=== PATIENT | female | born 1930 | race Caucasian/White ===

== ENCOUNTER → 2017-07-02 | Outpatient (CLI) | payer OTHER ==
--- NOTE | 2017-07-06 17:37 | MG ---
Examination: Bilateral screening mammogram. Clinical history: Routine screening. Technique: Digital CC and MLO views of both breasts were obtained. Computer aided detection analysis was performed and used during the interpretation. Comparison: None available. Findings: The breasts are composed predominantly of adipose tissue. Benign-appearing calcifications and vascul ar calcifications are noted in the breasts bilaterally. Skin moles are present overlying both breasts . No suspicious mass, area of architectural distortion or suspicious cluster of microcalcifications is noted. Impression: 1. No mammographic evidence of malignancy. BI-RADS category 2-benign findings. Recommend routine annual screening mammogram. Diagnostic CAD was utilized and reviewed. * 0 (ZERO) - ASSESSMENT INCOMPLETE; ADDITIONAL IMAGING IS NEEDED. * 0C - ASSESSMENT INCOMPLETE, NEEDS ADDITIONAL IMAGING EVALUATION AND/OR PRIOR MAMMOGRAMS FOR COMPARI SON. * 1/1 (ONE) - NEGATIVE. * 2/II (TWO) - BENIGN FINDINGS. * 3/III (THREE) - PROBABLY BENIGN FINDING; SHORT INTERVAL FOLLOW-UP SUGGESTED. * 4/IV (FOUR) - SUSPICIOUS ABNORMALITY; BIOPSY SHOULD BE CONSIDERED. * 5/V - HIGHLY SUSPICIOUS OF MALIGNANCY; BIOPSY SHOULD BE PERFORMED. * 6/IV - KNOWN BIOPSY PROVEN MALIGNANCY-APPROPRIATE ACTION SHOULD BE TAKEN. A NEGATIVE X-RAY REPORT SHOULD NOT DELAY BIOPSY IF A DOMINANT OR CLINICALLY SUSPICIOUS MASS IS PRESENT; 4 TO 8 PERCENT OF CANCERS ARE NOT IDENTIFIED BY X-RAY. A NEGATIVE REPORT MAY REINFORCE THE CLINICAL IMPRESSION. ADENOSIS AND DENSE BREASTS MAY OBSCURE AN UNDERLYING NEOPLASM. Reported By:
== END ==
LOC: RAD 09:08
PROVIDERS: ATTEND Internal Medicine Medical Oncology
DX: Z12.31 Encounter for screening mammogram for malignant neoplasm of breast (principal); C43.59 Malignant melanoma of other part of trunk
CPT/HCPCS: 77067

== ENCOUNTER → 2017-07-07 | Outpatient (CLI) | payer OTHER ==
[2017-07-07 09:11] LABS: BASOPHILS # (AUTO) 0.2 X10^3/uL (0.0-0.1); BASOPHILS % (AUTO) 1.9 % (0.2-1.0); EOSINOPHILS # (AUTO) 0.7 x10^3/uL (0.0-0.2); EOSINOPHILS % (AUTO) 8.5 % (0.9-2.9); HEMOGLOBIN 12.2 g/dL (12.0-16.0); LYMPHOCYTES # (AUTO) 2.5 X10^3/uL (1.3-2.9); LYMPHOCYTES % (AUTO) 30.7 % (21.0-51.0); MEAN CORPUSCULAR HEMOGLOBIN 27.3 pg (27.0-34.0); MEAN CORPUSCULAR VOLUME 80.3 fL (80.0-100.0); MEAN PLATELET VOLUME 7.5 fL (7.4-11.0); MONOCYTES # (AUTO) 0.8 x10^3/uL (0.3-0.8); MONOCYTES % (AUTO) 9.6 % (0.0-13.0); NEUTROPHILS # (AUTO) 3.9 x10^3/uL (2.2-4.8); NEUTROPHILS % (AUTO) 49.3 % (42.0-75.0); PLATELET COUNT 334 X10^3/uL (150.0-450.0); RED BLOOD COUNT 4.48 X10^6/uL (3.5-5.4); RED CELL DISTRIBUTION WIDTH 14.5 % (11.6-16.5)
[2017-07-07 09:22] LABS: ALANINE AMINOTRANSFERASE 18 Units/L (12-78); ALBUMIN 3.4 g/dL (3.4-5.0); ALKALINE PHOSPHATASE 67 Units/L (46-116); ASPARTATE AMINO TRANSFERASE 16 Units/L (15-37); BLOOD UREA NITROGEN 18 mg/dL (7-18); CALCIUM 9.2 mg/dL (8.5-10.1); CARBON DIOXIDE 27.8 mmol/L (21-32); CHLORIDE 107 mmol/L (98-107); COR NA(FOR HYPERGLY) 143 mmol/L (136-145); CREATININE 1.23 mg/dL (0.55-1.02); SODIUM 143 mmol/L (136-145); TOTAL PROTEIN 7.5 g/dL (6.4-8.2); eGFR BLACK RACES 53 (>60); eGFR NON BLACK RACES 44 (>60)
== END ==
LOC: LAB 08:34
PROVIDERS: ATTEND Internal Medicine Medical Oncology
DX: C43.59 Malignant melanoma of other part of trunk (principal)
CPT/HCPCS: 36415; 80053; 85025

== ENCOUNTER → 2017-10-12 | Outpatient (CLI) | payer OTHER ==
[2017-10-12 09:13] LABS: ALBUMIN 3.2 g/dL (3.4-5.0); CARBON DIOXIDE 26.4 mmol/L (21-32); COR CA(FOR HYPOALB) 9.6 mg/dL (8.5-10.1); CREATININE 1.27 mg/dL (0.55-1.02); TOTAL PROTEIN 7.6 g/dL (6.4-8.2)
[2017-10-12 09:14] LABS: BASOPHILS # (AUTO) 0.1 X10^3/uL (0.0-0.1); BASOPHILS % (AUTO) 2.1 % (0.2-1.0); EOSINOPHILS # (AUTO) 0.2 x10^3/uL (0.0-0.2); EOSINOPHILS % (AUTO) 3.5 % (0.9-2.9); HEMATOCRIT 34.9 % (36.0-47.0); HEMOGLOBIN 11.6 g/dL (12.0-16.0); LYMPHOCYTES # (AUTO) 2.5 X10^3/uL (1.3-2.9); LYMPHOCYTES % (AUTO) 37.2 % (21.0-51.0); MEAN CORPUSCULAR HGB CONC 33.2 g/dL (33.0-35.0); MEAN CORPUSCULAR VOLUME 81.4 fL (80.0-100.0); MEAN PLATELET VOLUME 7.3 fL (7.4-11.0); MONOCYTES # (AUTO) 0.6 x10^3/uL (0.3-0.8); MONOCYTES % (AUTO) 8.6 % (0.0-13.0); NEUTROPHILS # (AUTO) 3.3 x10^3/uL (2.2-4.8); NEUTROPHILS % (AUTO) 48.6 % (42.0-75.0); PLATELET COUNT 376 X10^3/uL (150.0-450.0); RED BLOOD COUNT 4.28 X10^6/uL (3.5-5.4); RED CELL DISTRIBUTION WIDTH 15.4 % (11.6-16.5); WHITE BLOOD COUNT 6.7 X10^3/uL (3.6-10.0)
== END ==
LOC: LAB 08:34
PROVIDERS: ATTEND Internal Medicine Medical Oncology
DX: C43.59 Malignant melanoma of other part of trunk (principal)
CPT/HCPCS: 36415; 80053; 83615; 85025

== ENCOUNTER 2017-11-08 13:57 | Inpatient (IN) | payer OTHER ==
--- NOTE | 2017-11-08 14:16 | DR.GENAD ---
HPI - PCP Primary Care Physician: Dr Tsai - Complaint/Symptoms Chief Complaint Doctors Comments: Patient was outside for family gathering and was noted to be unconscious. She was unresponsive for less than five minutes. She was diaphoretic w/o any abnormal movements. It is reported the CPR was iniated. Upon presentation to the ED she is alert in NAD; does not remeber event. Not sure if previous episode and no history of seizure. ROS - Review of Systems Constitutional: Weakness Eyes: No Symptoms Reported, See HPI ENTM: No Symptoms Reported Respiratoy: No Symptoms Reported Cardiovascular: No Symptoms Reported Gastrointestinal/Abdominal: No Symptoms Reported Genitourinary: No Symptoms Reported Neurological: No Symptoms Reported Musculoskeletal: No Symptoms Reported Integumentary: No Symptoms Reported Hematologic/Lymphatic: No Symptoms Reported Endocrine: No Symptoms Reported Psychiatric: No Symptoms Reported All Other Systems: Reviewed and Negative PE - Vital Signs Vitals: Temperature 97.8 F Pulse Rate 67 Respiratory Rate 20 Blood Pressure 173/76 O2 Sat by Pulse Oximetry 97 - General Limitations: No Limitations General Appearance: Alert, In No Apparent Distress - Head Head Exam: Normal Inspection, Atraumatic - Eyes Eye exam: Normal Appearance, PERRL, EOMI - ENT ENT Exam: Normal Exam External Ear Exam: Normal External Inspection TM/Canal Exam: Bilateral Normal Nose Exam: Normal Nose Exam, Sinus Tenderness Mouth Exam: Normal Inspection Throat Exam: Normal Inspection - Neck Neck Exam: Normal Inspection, Full ROM - Chest Chest Inspection: Normal Inspection - Respiratory Respiratory Exam: Normal Lung Sounds Bilat Respiratory Exam: Bilateral Clear to Auscultation - Cardiovascular Cardiovascular Exam: Regular Rate, Normal Rhythm - Abdominal Exam Abdominal Exam: Normal Inspection Abdominal Tenderness: negative: RUQ, RLQ, LUQ, LLQ, Epigastrium, Suprapubic, Diffuse, Mild, Moderate, Severe, Other - Extremities Extremities Exam: Normal Inspection, Full ROM - Back Back Exam: Normal Inspection, Full ROM - Neurologic Neurological Exam: Alert, Oriented X3, CN II-XII Intact - Psychiatric Psychiatric Exam: Normal Affect - Skin Skin Exam: Warm, Dry, Intact Course - Consultation Called: 15:15 (Dr Paredes agreed to admit for observation) ROR - Labs Reviewed Result Diagrams: 11/08/17 14:30 11/08/17 14:30 Laboratory: WBC 12.6 X10^3/uL (3.6-10.0) H 11/08/17 14:30 RBC 4.06 X10^6/uL (3.5-5.4) 11/08/17 14:30 Hgb 11.0 g/dL (12.0-16.0) L 11/08/17 14:30 Hct 33.0 % (36.0-47.0) L 11/08/17 14:30 MCV 81.1 fL (80.0-100.0) 11/08/17 14:30 MCH 27.0 pg (27.0-34.0) 11/08/17 14:30 MCHC 33.4 g/dL (33.0-35.0) 11/08/17 14:30 RDW 15.0 % (11.6-16.5) 11/08/17 14:30 Plt Count 333 X10^3/uL (150.0-450.0) 11/08/17 14:30 MPV 7.4 fL (7.4-11.0) 11/08/17 14:30 Neut % 70.9 % (42.0-75.0) 11/08/17 14:30 Lymph % 18.6 % (21.0-51.0) L 11/08/17 14:30 [place] % 8.8 % (0.0-13.0) 11/08/17 14:30 Eos % 0.9 % (0.9-2.9) 11/08/17 14:30 Baso % 0.8 % (0.2-1.0) 11/08/17 14:30 Neut # 8.9 x10^3/uL (2.2-4.8) H 11/08/17 14:30 Lymph # 2.3 X10^3/uL (1.3-2.9) 11/08/17 14:30 [place] # 1.1 x10^3/uL (0.3-0.8) H 11/08/17 14:30 Eos # 0.1 x10^3/uL (0.0-0.2) 11/08/17 14:30 Baso # 0.1 X10^3/uL (0.0-0.1) 11/08/17 14:30 Absolute Nucleated RBC 0.0 /100WBC 11/08/17 14:30 INR Target Range - 11/08/17 14:30 INR 1.07 (0.8-1.3) 11/08/17 14:30 PTT 30.6 SECONDS (22.9-36.5) 11/08/17 14:30 PTT Comment - 11/08/17 14:30 Sodium 140 mmol/L (136-145) 11/08/17 14:30 Corrected Sodium 141 mmol/L (136-145) 11/08/17 14:30 Potassium 4.1 mmol/L (3.5-5.1) 11/08/17 14:30 Chloride 103 mmol/L (98-107) 11/08/17 14:30 Carbon Dioxide 24.7 mmol/L (21-32) 11/08/17 14:30 BUN 20 mg/dL (7-18) H 11/08/17 14:30 Creatinine 1.34 mg/dL (0.55-1.02) H 11/08/17 14:30 Est GFR (MDRD) Af Amer 48 (>60) L 11/08/17 14:30 Est GFR (MDRD) Non-Af 40 (>60) L 11/08/17 14:30 Glucose 146 mg/dL (65-99) H 11/08/17 14:30 Calcium 9.3 mg/dL (8.5-10.1) 11/08/17 14:30 Corrected Calcium 9.9 mg/dL (8.5-10.1) 11/08/17 14:30 Magnesium 2.0 mg/dL (1.7-2.9) 11/08/17 14:30 Total Bilirubin 0.50 mg/dL (0.2-1.0) 11/08/17 14:30 AST 20 Units/L (15-37) 11/08/17 14:30 ALT 20 Units/L (12-78) 11/08/17 14:30 Alkaline Phosphatase 70 Units/L (46-116) 11/08/17 14:30 Creatine Kinase 95 Units/L (26-192) 11/08/17 14:30 CK-MB (CK-2) < 1.0 ng/mL (0-4.0) 11/08/17 14:30 CK/CKMB % Calc 1.1 % (<4) 11/08/17 14:30 Troponin I < 0.02 ng/mL (0-1.5) 11/08/17 14:30 Total Protein 7.9 g/dL (6.4-8.2) 11/08/17 14:30 Albumin 3.2 g/dL (3.4-5.0) L 11/08/17 14:30 Globulin 4.7 g/dL (2.5-4.5) H 11/08/17 14:30 Albumin/Globulin Ratio 0.7 Ratio (1.1-2.1) L 11/08/17 14:30 - XRAY XRAY Interpreted by: Radiologist (Chest: Normal transverse heart diameter with essentially clear lungs. There is no evidence for pneumothorax,pneumonia or large pleural effusion. Impression: No acute chest findings. CT Brain w/o Contrast: Extensive encephalomalacia changes bilaterally both supra and infraterntorially. No evidence of acute intracranial hemorrhage,mass,mass effect , midline shift or abnormal ventricular dilatation. Visualized paranasal sinuses and mastoid air cellls are unremarkable. Impression: No acute intracranial process.) - Diagnosis Discharge Problem: Syncope and collapse - Discharge Plan Condition: Stable - Follow ups/Referrals Follow ups/Referrals: Deng Tsai [Primary Care Provider] - 3 days - Instructions
[2017-11-08 14:20] VITALS: BMI 32.5
[2017-11-08 14:39] LABS: BASOPHILS # (AUTO) 0.1 X10^3/uL (0.0-0.1); BASOPHILS % (AUTO) 0.8 % (0.2-1.0); EOSINOPHILS # (AUTO) 0.1 x10^3/uL (0.0-0.2); EOSINOPHILS % (AUTO) 0.9 % (0.9-2.9); LYMPHOCYTES # (AUTO) 2.3 X10^3/uL (1.3-2.9); LYMPHOCYTES % (AUTO) 18.6 % (21.0-51.0); MEAN CORPUSCULAR HGB CONC 33.4 g/dL (33.0-35.0); MEAN CORPUSCULAR VOLUME 81.1 fL (80.0-100.0); MEAN PLATELET VOLUME 7.4 fL (7.4-11.0); MONOCYTES # (AUTO) 1.1 x10^3/uL (0.3-0.8); MONOCYTES % (AUTO) 8.8 % (0.0-13.0); NEUTROPHILS # (AUTO) 8.9 x10^3/uL (2.2-4.8); NEUTROPHILS % (AUTO) 70.9 % (42.0-75.0); PLATELET COUNT 333 X10^3/uL (150.0-450.0); RED BLOOD COUNT 4.06 X10^6/uL (3.5-5.4); WHITE BLOOD COUNT 12.6 X10^3/uL (3.6-10.0)
[2017-11-08] MEDS ORDERED: ZOFRAN INJ 4 MG VIAL IVP ONE (14:43)
[2017-11-08] MEDS ORDERED: NS 1000 ML 1,000 ML IV ONE (14:45)
[2017-11-08 14:56] LABS: BLOOD UREA NITROGEN 20 mg/dL (7-18); CALCIUM 9.3 mg/dL (8.5-10.1); CARBON DIOXIDE 24.7 mmol/L (21-32); CHLORIDE 103 mmol/L (98-107); COR NA(FOR HYPERGLY) 141 mmol/L (136-145); CREATININE 1.34 mg/dL (0.55-1.02); SODIUM 140 mmol/L (136-145); TROPONIN I < 0.02 ng/mL (0-1.5); eGFR BLACK RACES 48 (>60); eGFR NON BLACK RACES 40 (>60)
--- NOTE | 2017-11-08 14:58 | RAD ---
Examination: AP chest History: Syncope Findings: Normal transverse heart diameter with essentially clear lungs. There is no evidence for pne umothorax, pneumonia or large pleural effusion. Impression: No acute chest findings. Reported By:
[2017-11-08 15:01] LABS: ALANINE AMINOTRANSFERASE 20 Units/L (12-78); ALBUMIN 3.2 g/dL (3.4-5.0); ALKALINE PHOSPHATASE 70 Units/L (46-116); ASPARTATE AMINO TRANSFERASE 20 Units/L (15-37); COR CA(FOR HYPOALB) 9.9 mg/dL (8.5-10.1); CREATINE KINASE 95 Units/L (26-192); CREATINE KINASE MB < 1.0 ng/mL (0-4.0); TOTAL PROTEIN 7.9 g/dL (6.4-8.2)
[2017-11-08 15:02] LABS: CKMB % 1.1 % (<4)
--- NOTE | 2017-11-08 15:03 | CT ---
CT HEAD WITHOUT CONTRAST CLINICAL HISTORY: syncope TECHNIQUE: Axial images from skull base to the vertex without administration of IV contrast material. COMPARISON: None FINDINGS: Extensive encephalomalacia changes bilaterally both supra and infratentorially No evidence of acute intracranial hemorrhage, mass, mass effect, midline shift or abnormal ventricula r dilatation. Visualized paranasal sinuses and mastoid air cells are unremarkable. IMPRESSION: No acute intracranial process. Reported By:
[2017-11-08] MEDS ORDERED: FLUVIRIN IM ONE (17:40)
[2017-11-08 21:08] LABS: CREATINE KINASE 83 Units/L (26-192); CREATINE KINASE MB < 1.0 ng/mL (0-4.0); TROPONIN I < 0.02 ng/mL (0-1.5)
[2017-11-08 21:10] LABS: CKMB % 1.2 % (<4)
[2017-11-08] MEDS: NS 1000 ML 1,000 ML IV SCH (23:35)
[2017-11-09] MEDS: NS 1000 ML 1,000 ML IV SCH ×2 (05:21→15:58)
[2017-11-09 05:32] LABS: BASOPHILS # (AUTO) 0.1 X10^3/uL (0.0-0.1); BASOPHILS % (AUTO) 0.7 % (0.2-1.0); EOSINOPHILS # (AUTO) 0.1 x10^3/uL (0.0-0.2); EOSINOPHILS % (AUTO) 0.4 % (0.9-2.9); HEMOGLOBIN 9.8 g/dL (12.0-16.0); LYMPHOCYTES # (AUTO) 1.9 X10^3/uL (1.3-2.9); LYMPHOCYTES % (AUTO) 15.2 % (21.0-51.0); MEAN CORPUSCULAR HEMOGLOBIN 27.4 pg (27.0-34.0); MEAN CORPUSCULAR HGB CONC 33.8 g/dL (33.0-35.0); MEAN CORPUSCULAR VOLUME 81.2 fL (80.0-100.0); MEAN PLATELET VOLUME 7.6 fL (7.4-11.0); MONOCYTES # (AUTO) 1.2 x10^3/uL (0.3-0.8); NEUTROPHILS # (AUTO) 9.1 x10^3/uL (2.2-4.8); NEUTROPHILS % (AUTO) 73.7 % (42.0-75.0); PLATELET COUNT 299 X10^3/uL (150.0-450.0); RED BLOOD COUNT 3.57 X10^6/uL (3.5-5.4); WHITE BLOOD COUNT 12.4 X10^3/uL (3.6-10.0)
[2017-11-09 05:46] LABS: ALANINE AMINOTRANSFERASE 16 Units/L (12-78); ALBUMIN 2.7 g/dL (3.4-5.0); ALKALINE PHOSPHATASE 61 Units/L (46-116); ASPARTATE AMINO TRANSFERASE 13 Units/L (15-37); BLOOD UREA NITROGEN 12 mg/dL (7-18); CALCIUM 8.6 mg/dL (8.5-10.1); CARBON DIOXIDE 25.7 mmol/L (21-32); CHLORIDE 107 mmol/L (98-107); COR CA(FOR HYPOALB) 9.6 mg/dL (8.5-10.1); COR NA(FOR HYPERGLY) 141 mmol/L (136-145); CREATININE 0.92 mg/dL (0.55-1.02); SODIUM 141 mmol/L (136-145); TOTAL PROTEIN 6.8 g/dL (6.4-8.2); eGFR BLACK RACES > 60 (>60); eGFR NON BLACK RACES > 60 (>60)
[2017-11-09] MEDS: SYNTHROID 100 mcg TAB PO SCH (08:30)
[2017-11-09] MEDS: PROTONIX TAB 40 MG PO SCH (08:31)
[2017-11-09] MEDS: PLAVIX PO SCH (08:32)
[2017-11-09] MEDS ORDERED: DIOVAN TAB 160 MG PO SCH (09:00)
[2017-11-09] MEDS ORDERED: CRESTOR TAB 10 MG PO SCH (09:00)
[2017-11-09] MEDS ORDERED: COREG TAB 12.5 MG PO SCH (09:00)
[2017-11-09] MEDS ORDERED: VALSARTAN 320 MG PO SCH (09:00)
[2017-11-09] MEDS ORDERED: NORVASC TAB 10 MG PO SCH (09:00)
--- NOTE | 2017-11-09 09:48 | DR.H&P ---
H&P - History & Physical for Day of: H&P Date: 11/08/17 - Chief Complaint Chief Complaint: weakness, nausea, headache, syncopal episode at home - Allergies Allergies/Adverse Reactions: Allergies Allergy/AdvReac Type Severity Reaction Status Date / Time iodine Allergy Verified 11/08/17 14:07 - History of Present Illness History of Present Illness: is a 87 year old patient of ours who presented to the ER via EMS. EMS reports that they were called out to a patient who was unresponsive, but breathing. Patients family reports that she was unresponsive for no longer than five minutes. They report that patient was diaphoretic without any abnormal movements. Family reports that they initiated CPR prior to EMS arrival. Upon arrival patient was alert and oriented with no acute distress noted. Patient reports weakness, nausea, and headache. Patient has no recollection of event. Medical Hx includes: Cataracts, Vertigo, CVA, HTN , Fibroids, Arthritis, Osteoarthritis, Osteoporosis, Skin cancer, Cholecystectomy, Hysterectomy, and Hernia Surgery. On arrival, vitals were 98.4 , 87, 26, 99%2LP NC, 153/67. Labs were obtained. Abnormal lab values include the following: WBC 12.6, Hgb, 11.0, Hct 33.0, BUN 20, Creatinine 1.34, GFR(AA) 48, GFR(NON) 40, Glucose 146, Albumin 3.2, Globulin 4.7, A/G ratio 0.7. EKG reported: Normal sinus rhythm with HR of 76. Chest Xray reported: No acute chest findings. Brain CT reported: No acute intracranial process. She was started on Normal saline at 150ml/hr and given Zofran 4mg iv x 1 for nausea. Patient was admitted to the intensive care unit for further evaluation and treatment for syncope. We plan to obtain a Brain MRI/MRA in the morning. Otherwise, we will follow up with AM labs and continue to monitor patient. - Past Medical History Past Medical History: Arthritis, Coronary Artery Disease, Dyslipidemia, GERD, Hypertension, Hypothyroidism - Past Surgical History Surgical History: Cholecystectomy, Hysterectomy Additional Surgical History: skin cancer removed, hernia repair - Family History Family Medical History: Diabetes Mellitus, Cancer, Hypertension - Social History Does patient currently use any type of tobacco product: No Have you used tobacco products in the last 12 months: No Type of Tobacco Use: None Does any household member use tobacco: No Alcohol Use: None Drug Use: None - Medications Home Medications: Amlodipine Besylate [NORVASC 10 MG *] 10 mg PO DAILY 11/08/17 [History Confirmed 11/08/17] Carvedilol [COREG TAB 12.5 MG *] 12.5 mg PO DAILY 11/08/17 [History Confirmed ] Clopidogrel Bisulfate [PLAVIX TAB 75 MG *] 75 mg PO DAILY 11/08/17 [History Confirmed 11/08/17] Levothyroxine Sodium [Levoxyl] 100 mg PO DAILY 11/08/17 [History Confirmed 11/08] Pantoprazole Sodium 40 mg [PROTONIX 40 MG *] 40 mg PO DAILY 11/08/17 [History Confirmed 11/08/17] Rosuvastatin Calcium [CRESTOR 10 MG *] 10 mg PO DAILY 11/08/17 [History Confirmed 11/08/17] Valsartan [Diovan 320 mg] 320 mg PO DAILY 11/08/17 [History Confirmed 11/08/17] - Review of Systems Constitutional: Weakness. denies: Fever, Chills, Sweats Eyes: No Symptoms Reported. denies: See HPI, Pain, Vision Change, Conjunctivae Inflammation, Eyelid Inflammation, Redness, Other ENT: No Symptoms Reported. denies: See HPI, Ear Pain, Ear Discharge, Nose Pain , Nose Discharge, Nose Congestion, Mouth Pain, Mouth Swelling, Throat Pain, Throat Swelling, Other Respiratory: No Symptoms Reported. denies: See HPI, Cough, Dry, Shortness of Breath, Hemoptysis, SOB with Excertion, Pleuritic Pain, Sputum, Wheezing, Other Cardiovascular: No Symptoms Reported. denies: Chest Pain, See HPI, Palpitations , Orthopnea, Paroxysmal Noc. Dyspnea, Edema, Light Headedness, Other Gastrointestinal: Nausea. denies: Vomiting, Abdominal Pain, Diarrhea, Constipation, Melena, Hematochezia Genitourinary: No Symptoms Reported. denies: See HPI, Dysuria, Frequency, Incontinence, Hematuria, Retention, Other Musculoskeletal: No Symptoms Reported. denies: See HPI, Shoulder Pain, Arm Pain , Back Pain, Hand Pain, Leg Pain, Foot Pain, Neck Pain, Other Skin: No Symptoms Reported. denies: See HPI, Rash, Lesions, Jaundice, Bruising , Wound, Ecchymosis, Other Neurological: Weakness, Other (headache ) - Physical Exam Vital Signs: Temperature 98.9 F Pulse Rate [Left Brachial] 92 Pulse Rate 67 Respiratory Rate 22 Blood Pressure [Left Arm] 130/62 Blood Pressure 173/76 O2 Sat by Pulse Oximetry 96 Oriented: Normal Eyes: Normal Ear: Normal Nose: Normal Throat: Normal Respiratory: Clear Throughout Cardiovascular: Normal. negative: S3, S4, Murmur : Normal. negative: Dysuria, Hematuria, Frequency, Discharge, Testicular Pain , Bleeding, , Other Auscultation: Bowel Sounds: Normal. negative: Bruit, Absent, Increased, Decreased, High Pitched, Other Palpation: Normal Tenderness: Normal. negative: Rebound, Guarding, Rigidity Skin: Normal Musculoskeletal: Normal Psychiatric: Normal. negative: Anxiety, Depression, Agitation, Other Mood Description: Calm. negative: Angry, Apathetic, Depressed, Fearful, Flat, Happy, Hostile, Sad, Suspicious, Withdrawn, Anxious, Appropriate, Labile Affect: Normal. negative: Angry, Anxious, Depressed, Flat, Hysterical, Quiet, Violent Speech Pattern: Clear. negative: Appropriate, Unclear, Inappropriate, Delayed, Slurred, Excessive, Aphasic, Artificially Ventilated - Assessment/Plan (1) Syncope and collapse Status: Acute Plan: admit to intensive care unit, lunchroom monitor, normal saline at 80ml/hr, brain CT in the morning, continue to monitor
--- NOTE | 2017-11-09 10:34 | PCM.PROG ---
Progress Note - Progress Note for Day of Date: 11/09/17 - Subjective Subjective: WAS ADMITTED FOLLOWING A SYNCOPAL EPISODE. TODAY, SHE IS ALERT AND ORIENTED, LYING IN BED ON MORNING ROUNDS. SHE CONTINUES WITH COMPLAINTS OF GENERALIZED WEAKNESS, BUT DENIES HEADACHE OR NAUSEA THIS MORNING. ON EXAMINATION, PUPILS PERRLA. HEART IS REGULAR IN RATE AND RHYTHM. BIALTERAL LUNGS ARE CLEAR TO AUSCULTATION. ABDOMEN IS ROUND, SOFT, AND NON-TENDER WITH NORMAL BOWEL SOUNDS NOTED IN ALL QUADRANTS. THERE IS NORMAL RANGE OF MOTION NOTED TO ALL EXTREMITIES. HER VITALS THIS MORNING ARE 98.9-92-22-96%-130/62. LABS WERE OBTAINED THIS MORNING. ABNORMAL LAB VALUES INCLUDE THE FOLLOWING: WBC 12.4, HGB 9.8, HCT 29.0, GLUCOSE 113, AST 13, ALBUMIN 2.7. CARDIAC ENZYMES HAVE BEEN WITHIN NORMAL LIMITS. MOST RECENT EKG REPORTS NORMAL SINUS RHYTHM WITH HR 82. TODAY, WE WILL OBTAIN A BRAIN MRI/MRA WITH CONTRAST. WE WILL ALSO OBTAIN AN ECHO AND A CAROTID DOPPLER. WE WILL DISCONTINUE THE COREG, AMLODIPINE, AND DIOVAN THAT SHE CURRENTLY TAKES AND START METOPROLOL XL 12.5MG PO DAILY. OTHERWISE, WE WILL CONTINUE WITH CURRENT PLAN OF CARE. WE PLAN TO FOLLOW UP WITH AM LABS AND CONTINUE TO MONITOR PATIENT. - Past Medical Family Social History Past Med/Fam/Surg Hx: No changes since H&P Allergies: Allergies iodine Allergy (Verified 11/08/17 14:07) - Review of Systems ROS: No change since H&P - Vital Signs and I&O's Vital Signs: Temperature 98.6 F Pulse Rate [Left Brachial] 85 Pulse Rate 67 Respiratory Rate 19 Blood Pressure [Left Arm] 134/63 Blood Pressure 173/76 O2 Sat by Pulse Oximetry 96 Intake and Output: Intake & Output 11/06/17 11/07/17 11/08/17 11/09/17 11:59 11:59 11:59 11:59 Intake Total 1640 Balance 1640 - Physical Exam Oriented: Normal Eyes: Normal Ear: Normal Nose: Normal Throat: Normal Respiratory: Normal Cardiovascular: Normal. negative: S3, S4, Murmur : Normal. negative: Dysuria, Hematuria, Frequency, Discharge, Testicular Pain , Bleeding, , Other Auscultation: Bowel Sounds: Normal. negative: Bruit, Absent, Increased, Decreased, High Pitched, Other Palpation: Normal Tenderness: Normal. negative: Rebound, Guarding, Rigidity Skin: Normal Musculoskeletal: Normal Psychiatric: Normal. negative: Anxiety, Depression, Agitation, Other Mood Description: Calm. negative: Angry, Apathetic, Depressed, Fearful, Flat, Happy, Hostile, Sad, Suspicious, Withdrawn, Anxious, Appropriate, Labile Affect: Normal. negative: Angry, Anxious, Depressed, Flat, Hysterical, Quiet, Violent Speech Pattern: Clear. negative: Appropriate, Unclear, Inappropriate, Delayed, Slurred, Excessive, Aphasic, Artificially Ventilated - Laboratory and Diagnostics Result Diagrams: 11/09/17 04:40 11/09/17 04:40 Labs: Laboratory WBC 12.4 X10^3/uL (3.6-10.0) H 11/09/17 04:40 RBC 3.57 X10^6/uL (3.5-5.4) 11/09/17 04:40 Hgb 9.8 g/dL (12.0-16.0) L 11/09/17 04:40 Hct 29.0 % (36.0-47.0) L 11/09/17 04:40 MCV 81.2 fL (80.0-100.0) 11/09/17 04:40 MCH 27.4 pg (27.0-34.0) 11/09/17 04:40 MCHC 33.8 g/dL (33.0-35.0) 11/09/17 04:40 RDW 15.0 % (11.6-16.5) 11/09/17 04:40 Plt Count 299 X10^3/uL (150.0-450.0) 11/09/17 04:40 MPV 7.6 fL (7.4-11.0) 11/09/17 04:40 Neut % 73.7 % (42.0-75.0) 11/09/17 04:40 Lymph % 15.2 % (21.0-51.0) L 11/09/17 04:40 [place] % 10.0 % (0.0-13.0) 11/09/17 04:40 Eos % 0.4 % (0.9-2.9) L 11/09/17 04:40 Baso % 0.7 % (0.2-1.0) 11/09/17 04:40 Neut # 9.1 x10^3/uL (2.2-4.8) H 11/09/17 04:40 Lymph # 1.9 X10^3/uL (1.3-2.9) 11/09/17 04:40 [place] # 1.2 x10^3/uL (0.3-0.8) H 11/09/17 04:40 Eos # 0.1 x10^3/uL (0.0-0.2) 11/09/17 04:40 Baso # 0.1 X10^3/uL (0.0-0.1) 11/09/17 04:40 Absolute Nucleated RBC 0.0 /100WBC 11/09/17 04:40 INR Target Range - 11/08/17 14:30 INR 1.07 (0.8-1.3) 11/08/17 14:30 PTT 30.6 SECONDS (22.9-36.5) 11/08/17 14:30 PTT Comment - 11/08/17 14:30 Sodium 141 mmol/L (136-145) 11/09/17 04:40 Corrected Sodium 141 mmol/L (136-145) 11/09/17 04:40 Potassium 3.8 mmol/L (3.5-5.1) 11/09/17 04:40 Chloride 107 mmol/L (98-107) 11/09/17 04:40 Carbon Dioxide 25.7 mmol/L (21-32) 11/09/17 04:40 BUN 12 mg/dL (7-18) 11/09/17 04:40 Creatinine 0.92 mg/dL (0.55-1.02) 11/09/17 04:40 Est GFR (MDRD) Af Amer > 60 (>60) 11/09/17 04:40 Est GFR (MDRD) Non-Af > 60 (>60) 11/09/17 04:40 Glucose 113 mg/dL (65-99) H 11/09/17 04:40 Calcium 8.6 mg/dL (8.5-10.1) 11/09/17 04:40 Corrected Calcium 9.6 mg/dL (8.5-10.1) 11/09/17 04:40 Magnesium 2.0 mg/dL (1.7-2.9) 11/08/17 14:30 Total Bilirubin 0.40 mg/dL (0.2-1.0) 11/09/17 04:40 AST 13 Units/L (15-37) L 11/09/17 04:40 ALT 16 Units/L (12-78) 11/09/17 04:40 Alkaline Phosphatase 61 Units/L (46-116) 11/09/17 04:40 Creatine Kinase 83 Units/L (26-192) 11/08/17 20:40 CK-MB (CK-2) < 1.0 ng/mL (0-4.0) 11/08/17 20:40 CK/CKMB % Calc 1.2 % (<4) 11/08/17 20:40 Troponin I < 0.02 ng/mL (0-1.5) 11/08/17 20:40 Total Protein 6.8 g/dL (6.4-8.2) 11/09/17 04:40 Albumin 2.7 g/dL (3.4-5.0) L 11/09/17 04:40 Globulin 4.1 g/dL (2.5-4.5) 11/09/17 04:40 Albumin/Globulin Ratio 0.7 Ratio (1.1-2.1) L 11/09/17 04:40 - Plan (1) Syncope and collapse Status: Acute Plan: obtain echo and carotid doppler, ekg monitor tech, normal saline at 80ml/hr , brain CT in the morning, continue to monitor (2) Hypertension Status: Acute Qualifiers: Hypertension type: essential hypertension Qualified Code(s): I10 - Essential (primary) hypertension Plan: metoprolol xl 12.5mg po daily, continue to monitor (3) Hypothyroidism Status: Acute Qualifiers: Hypothyroidism type: acquired Qualified Code(s): E03.9 - Hypothyroidism, unspecified Plan: continue levothyroxine, continue to monitor (4) GERD (gastroesophageal reflux disease) Status: Acute Qualifiers: Esophagitis presence: esophagitis presence not specified Qualified Code(s) : K21.9 - Gastro-esophageal reflux disease without esophagitis Plan: continue protonix, continue to monitor (5) Hyperlipemia Status: Acute Qualifiers: Hyperlipidemia type: mixed hyperlipidemia Qualified Code(s): E78.2 - Mixed hyperlipidemia Plan: continue rosuvastatin, continue to monitor
--- NOTE | 2017-11-09 13:35 | MRI ---
HISTORY: Syncope, weakness, headache Study: MRI brain without contrast Comparison: CT performed on 11/08/2017 Technique: Multi sequence, multiplanar imaging of the brain was performed both before and after the administrati on of 17 cc Omniscan . Findings: Imaging of the brain demonstrates the midline structures to be intact. There is no intracranial hemor rhage, mass effect, or midline shift. Diffusion-weighted images demonstrate no restricted diffusion t o suggest acute or early subacute infarct. Global atrophy is noted. There is extensive encephalomalac ia and gliosis present within the bilateral cerebellar hemispheres, left greater than right. These fi ndings may reflect prior remote infarcts. There is also evidence of prior remote infarct involving th e left occipital lobe. No extra-axial fluid collection is identified. There are T2/FLAIR hyperintense foci throughout the periventricular, deep, and subcortical white matter, findings likely reflecting chronic small vessel disease. The basilar cisterns are patent. The bilateral cerebellopontine angles are unremarkable. Postcontrast images demonstrate no abnormal contrast enhancement within the brain. Incidental note is made of a 9 mm nodule within the left posterior scalp, likely representing a compl icated sebaceous cyst. IMPRESSION: 1. No acute or early subacute infarct. 2. Extensive encephalomalacia within the bilateral cerebellar hemispheres, likely reflecting prior re mote infarcts. Prior remote left occipital infarct noted as well. 3. Chronic small vessel disease in global atrophy. Reported By:
--- NOTE | 2017-11-09 14:39 | MRI ---
STUDY: MRA OF THE BRAIN HISTORY: Syncope. Weakness. Comparison: None. Technique: 3D [id number] imaging of the intracranial circulation was performed. Findings: 3D [id number] MRA examination shows mild focal stenosis in the cavernous left ICA. There is jerry lization of flow within the supraclinoid left ICA to the ICA terminus. There is normal flow related e nhancement in the remaining major intracranial arteries. There is no evidence of hemodynamically sign ificant stenosis or aneurysm. There is a normal anterior communicating artery. There are small bilate ralposterior communicating arteries. Vertebral arteries are codominant. IMPRESSION: 1. 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 No significant attenuation of flow is identified distal to the focal stenosis. Reported By:
--- NOTE | 2017-11-09 17:23 | VAS ---
History: Syncope and headache Study: Carotid duplex ultrasound Comparison: None Findings: The peak systolic velocity in the right common carotid artery is 76.8 centimeters/second an d in the internal carotid artery is 109.8 centimeters/second for ratio of 1.43. Peak systolic velocity in the left common carotid artery is 97.9 centimeters/second compared to 118.8 centimeters/second in the left internal carotid artery for a ratio of 1.21. There is antegrade flow in the left vertebral artery. The right vertebral is not visualized. No signi ficant plaque formation is demonstrated. Impression: Negative, no evidence for significant stenosis. Reported By:
[2017-11-10 05:28] LABS: BASOPHILS # (AUTO) 0.1 X10^3/uL (0.0-0.1); BASOPHILS % (AUTO) 0.9 % (0.2-1.0); EOSINOPHILS # (AUTO) 0.3 x10^3/uL (0.0-0.2); EOSINOPHILS % (AUTO) 3.1 % (0.9-2.9); HEMATOCRIT 28.1 % (36.0-47.0); HEMOGLOBIN 9.5 g/dL (12.0-16.0); LYMPHOCYTES # (AUTO) 2.7 X10^3/uL (1.3-2.9); LYMPHOCYTES % (AUTO) 25.1 % (21.0-51.0); MEAN CORPUSCULAR HEMOGLOBIN 27.9 pg (27.0-34.0); MEAN CORPUSCULAR HGB CONC 33.9 g/dL (33.0-35.0); MEAN CORPUSCULAR VOLUME 82.2 fL (80.0-100.0); MEAN PLATELET VOLUME 7.4 fL (7.4-11.0); MONOCYTES # (AUTO) 1.2 x10^3/uL (0.3-0.8); MONOCYTES % (AUTO) 11.5 % (0.0-13.0); NEUTROPHILS # (AUTO) 6.3 x10^3/uL (2.2-4.8); NEUTROPHILS % (AUTO) 59.4 % (42.0-75.0); PLATELET COUNT 293 X10^3/uL (150.0-450.0); RED BLOOD COUNT 3.42 X10^6/uL (3.5-5.4); RED CELL DISTRIBUTION WIDTH 14.9 % (11.6-16.5); WHITE BLOOD COUNT 10.6 X10^3/uL (3.6-10.0)
[2017-11-10 05:46] LABS: ALANINE AMINOTRANSFERASE 13 Units/L (12-78); ALBUMIN 2.4 g/dL (3.4-5.0); ALKALINE PHOSPHATASE 57 Units/L (46-116); ASPARTATE AMINO TRANSFERASE 16 Units/L (15-37); BLOOD UREA NITROGEN 8 mg/dL (7-18); CALCIUM 8.2 mg/dL (8.5-10.1); CARBON DIOXIDE 26.8 mmol/L (21-32); CHLORIDE 107 mmol/L (98-107); COR CA(FOR HYPOALB) 9.5 mg/dL (8.5-10.1); CREATININE 0.83 mg/dL (0.55-1.02); SODIUM 141 mmol/L (136-145); TOTAL PROTEIN 6.6 g/dL (6.4-8.2); eGFR BLACK RACES > 60 (>60); eGFR NON BLACK RACES > 60 (>60)
[2017-11-10] MEDS: NS 1000 ML 1,000 ML IV SCH ×2 (06:06→21:00)
[2017-11-10] MEDS ORDERED: POTASSIUM CHLORIDE LIQ 20 MEQ UDC PO PRN (06:19)
[2017-11-10] MEDS ORDERED: MAG-OX TAB PO PRN (06:19)
[2017-11-10] MEDS ORDERED: POTASSIUM CHL 40 MEQ/NS 0.45% 500 ML IV PRN (06:19)
[2017-11-10] MEDS ORDERED: POTASSIUM CHL 60 MEQ/NS 0.45% 500 ML IV PRN (06:19)
[2017-11-10] MEDS ORDERED: MAGNESIUM SULFATE 1 GM/100 mL PREMIX 1 GM/100 ML BAG IV PRN (06:19)
[2017-11-10] MEDS ORDERED: K-RIDER 10 MEQ/NS 100 ML 10 MEQ/100 ML BAG IV PRN (06:19)
[2017-11-10] MEDS: K-LYTE EFFERVESCENT PO PRN (06:48)
[2017-11-10] MEDS: PROTONIX TAB 40 MG PO SCH (09:59)
[2017-11-10] MEDS: SYNTHROID 100 mcg TAB PO SCH (09:59)
[2017-11-10] MEDS: TOPROL XL PO SCH (09:59)
[2017-11-10] MEDS: ECOTRIN TAB 325 MG PO SCH (09:59)
[2017-11-10] MEDS: PLAVIX PO SCH (10:11)
[2017-11-11 05:51] LABS: BASOPHILS # (AUTO) 0.1 X10^3/uL (0.0-0.1); BASOPHILS % (AUTO) 0.9 % (0.2-1.0); EOSINOPHILS # (AUTO) 0.3 x10^3/uL (0.0-0.2); EOSINOPHILS % (AUTO) 3.3 % (0.9-2.9); HEMATOCRIT 28.8 % (36.0-47.0); HEMOGLOBIN 9.8 g/dL (12.0-16.0); LYMPHOCYTES # (AUTO) 1.9 X10^3/uL (1.3-2.9); LYMPHOCYTES % (AUTO) 18.5 % (21.0-51.0); MEAN CORPUSCULAR HEMOGLOBIN 27.3 pg (27.0-34.0); MEAN CORPUSCULAR HGB CONC 34.1 g/dL (33.0-35.0); MEAN CORPUSCULAR VOLUME 80.1 fL (80.0-100.0); MEAN PLATELET VOLUME 7.2 fL (7.4-11.0); MONOCYTES # (AUTO) 1.2 x10^3/uL (0.3-0.8); MONOCYTES % (AUTO) 11.1 % (0.0-13.0); NEUTROPHILS # (AUTO) 6.9 x10^3/uL (2.2-4.8); NEUTROPHILS % (AUTO) 66.2 % (42.0-75.0); PLATELET COUNT 312 X10^3/uL (150.0-450.0); RED CELL DISTRIBUTION WIDTH 14.5 % (11.6-16.5); WHITE BLOOD COUNT 10.4 X10^3/uL (3.6-10.0)
[2017-11-11 06:13] LABS: ALANINE AMINOTRANSFERASE 14 Units/L (12-78); ALBUMIN 2.5 g/dL (3.4-5.0); ALKALINE PHOSPHATASE 56 Units/L (46-116); ASPARTATE AMINO TRANSFERASE 15 Units/L (15-37); BLOOD UREA NITROGEN 6 mg/dL (7-18); CALCIUM 8.7 mg/dL (8.5-10.1); CHLORIDE 106 mmol/L (98-107); COR CA(FOR HYPOALB) 9.9 mg/dL (8.5-10.1); CREATININE 0.76 mg/dL (0.55-1.02); SODIUM 141 mmol/L (136-145); TOTAL PROTEIN 6.9 g/dL (6.4-8.2); eGFR BLACK RACES > 60 (>60); eGFR NON BLACK RACES > 60 (>60)
[2017-11-11] MEDS: CRESTOR TAB 10 MG PO SCH (08:30)
[2017-11-11] MEDS: TOPROL XL PO SCH (08:30)
[2017-11-11] MEDS: PLAVIX PO SCH (08:31)
[2017-11-11] MEDS: SYNTHROID 100 mcg TAB PO SCH (08:31)
[2017-11-11] MEDS: PROTONIX TAB 40 MG PO SCH (08:31)
[2017-11-11] MEDS: ECOTRIN TAB 325 MG PO SCH (08:31)
[2017-11-11] MEDS: K-LYTE EFFERVESCENT PO PRN (08:39)
[2017-11-11] MEDS: NS 1000 ML 1,000 ML IV SCH ×2 (10:13→21:55)
[2017-11-11] MEDS: NORVASC TAB 5 MG PO SCH (10:17)
--- NOTE | 2017-11-11 12:49 | PCM.PROG ---
Progress Note - Progress Note for Day of Date: 11/10/17 - Subjective Subjective: WAS ADMITTED FOLLOWING A SYNCOPAL EPISODE. TODAY, SHE IS ALERT AND ORIENTED, LYING IN BED ON MORNING ROUNDS. SHE CONTINUES WITH COMPLAINTS OF GENERALIZED WEAKNESS, BUT DENIES HEADACHE OR NAUSEA THIS MORNING. ON EXAMINATION, PUPILS PERRLA. HEART IS REGULAR IN RATE AND RHYTHM. BIALTERAL LUNGS ARE CLEAR TO AUSCULTATION. ABDOMEN IS ROUND, SOFT, AND NON-TENDER WITH NORMAL BOWEL SOUNDS NOTED IN ALL QUADRANTS. THERE IS NORMAL RANGE OF MOTION NOTED TO ALL EXTREMITIES. HER VITALS THIS MORNING ARE 98.4-91-25-96%-149/67. LABS WERE OBTAINED THIS MORNING. ABNORMAL LAB VALUES INCLUDE THE FOLLOWING: WBC 10.6, RBC 3.42, HGB 9.5, HCT 28.1, BUN 6, GLUCOSE 110, ALBUMIN 2.5. A BRAIN MRI/ MRA WITH CONTRAST WAS OBTAINED YESTERDAY. MRI REPORTED NO ACUTE OR EARLY SUBACUTE INFARCT. 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 PRIOR REMOTE LEFT OCCIPITAL INFARCT NOTED S WELL. 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 NO SIGNIFICANT ATTENUTION OF FLOW IS IDENTIFEIED DISTAL TO THE FOCAL STENOSIS. ECHOCARDIOGRAM REPORTED AN EJECTION FRACTION OF 58%. CAROTID DOPPLER NEGATIVE. TODAY, WE WILL INCREASE ROSUVASTATIN TO 20MG PO DAILY AND START ECOTRIN 325MG PO DAILY. OTHERWISE, WE WILL CONTINUE WITH CURRENT PLAN OF CARE. WE PLAN TO FOLLOW UP WITH AM LABS AND CONTINUE TO MONITOR PATIENT. - Past Medical Family Social History Past Med/Fam/Surg Hx: No changes since H&P Allergies: Allergies iodine Allergy (Verified 11/08/17 14:07) - Review of Systems ROS: No change since H&P - Vital Signs and I&O's Vital Signs: Temperature 97.9 F Pulse Rate [Left Brachial] 76 Pulse Rate 67 Respiratory Rate 20 Blood Pressure [Left Arm] 150/69 Blood Pressure 173/76 O2 Sat by Pulse Oximetry 97 Intake and Output: Intake & Output 11/09/17 11/10/17 11/11/17 11/12/17 11:59 11:59 11:59 11:59 Intake Total 1640 2507 2872 Output Total 0 Balance 1640 2507 2872 - Physical Exam Oriented: Normal Eyes: Normal Ear: Normal Nose: Normal Throat: Normal Respiratory: Normal Cardiovascular: Normal. negative: S3, S4, Murmur : Normal. negative: Dysuria, Hematuria, Frequency, Discharge, Testicular Pain , Bleeding, , Other Auscultation: Bowel Sounds: Normal. negative: Bruit, Absent, Increased, Decreased, High Pitched, Other Palpation: Normal Tenderness: Normal. negative: Rebound, Guarding, Rigidity Skin: Normal Musculoskeletal: Normal Psychiatric: Normal. negative: Anxiety, Depression, Agitation, Other Mood Description: Calm. negative: Angry, Apathetic, Depressed, Fearful, Flat, Happy, Hostile, Sad, Suspicious, Withdrawn, Anxious, Appropriate, Labile Affect: Normal. negative: Angry, Anxious, Depressed, Flat, Hysterical, Quiet, Violent Speech Pattern: Clear, Appropriate - Laboratory and Diagnostics Result Diagrams: 11/11/17 05:10 11/11/17 05:10 Labs: Laboratory WBC 10.4 X10^3/uL (3.6-10.0) H 11/11/17 05:10 RBC 3.60 X10^6/uL (3.5-5.4) 11/11/17 05:10 Hgb 9.8 g/dL (12.0-16.0) L 11/11/17 05:10 Hct 28.8 % (36.0-47.0) L 11/11/17 05:10 MCV 80.1 fL (80.0-100.0) 11/11/17 05:10 MCH 27.3 pg (27.0-34.0) 11/11/17 05:10 MCHC 34.1 g/dL (33.0-35.0) 11/11/17 05:10 RDW 14.5 % (11.6-16.5) 11/11/17 05:10 Plt Count 312 X10^3/uL (150.0-450.0) 11/11/17 05:10 MPV 7.2 fL (7.4-11.0) L 11/11/17 05:10 Neut % 66.2 % (42.0-75.0) 11/11/17 05:10 Lymph % 18.5 % (21.0-51.0) L 11/11/17 05:10 [place] % 11.1 % (0.0-13.0) 11/11/17 05:10 Eos % 3.3 % (0.9-2.9) H 11/11/17 05:10 Baso % 0.9 % (0.2-1.0) 11/11/17 05:10 Neut # 6.9 x10^3/uL (2.2-4.8) H 11/11/17 05:10 Lymph # 1.9 X10^3/uL (1.3-2.9) 11/11/17 05:10 Swift # 1.2 x10^3/uL (0.3-0.8) H 11/11/17 05:10 Eos # 0.3 x10^3/uL (0.0-0.2) H 11/11/17 05:10 Baso # 0.1 X10^3/uL (0.0-0.1) 11/11/17 05:10 Absolute Nucleated RBC 0.0 /100WBC 11/11/17 05:10 INR Target Range - 11/08/17 14:30 INR 1.07 (0.8-1.3) 11/08/17 14:30 PTT 30.6 SECONDS (22.9-36.5) 11/08/17 14:30 PTT Comment - 11/08/17 14:30 Sodium 141 mmol/L (136-145) 11/11/17 05:10 Corrected Sodium TNP 11/11/17 05:10 Potassium 3.6 mmol/L (3.5-5.1) 11/11/17 05:10 Chloride 106 mmol/L (98-107) 11/11/17 05:10 Carbon Dioxide 28.0 mmol/L (21-32) 11/11/17 05:10 BUN 6 mg/dL (7-18) L 11/11/17 05:10 Creatinine 0.76 mg/dL (0.55-1.02) 11/11/17 05:10 Est GFR (MDRD) Af Amer > 60 (>60) 11/11/17 05:10 Est GFR (MDRD) Non-Af > 60 (>60) 11/11/17 05:10 Glucose 110 mg/dL (65-99) H 11/11/17 05:10 Calcium 8.7 mg/dL (8.5-10.1) 11/11/17 05:10 Corrected Calcium 9.9 mg/dL (8.5-10.1) 11/11/17 05:10 Magnesium 1.8 mg/dL (1.7-2.9) 11/11/17 05:10 Total Bilirubin 0.30 mg/dL (0.2-1.0) 11/11/17 05:10 AST 15 Units/L (15-37) 11/11/17 05:10 ALT 14 Units/L (12-78) 11/11/17 05:10 Alkaline Phosphatase 56 Units/L (46-116) 11/11/17 05:10 Creatine Kinase 83 Units/L (26-192) 11/08/17 20:40 CK-MB (CK-2) < 1.0 ng/mL (0-4.0) 11/08/17 20:40 CK/CKMB % Calc 1.2 % (<4) 11/08/17 20:40 Troponin I < 0.02 ng/mL (0-1.5) 11/08/17 20:40 Total Protein 6.9 g/dL (6.4-8.2) 11/11/17 05:10 Albumin 2.5 g/dL (3.4-5.0) L 11/11/17 05:10 Globulin 4.4 g/dL (2.5-4.5) 11/11/17 05:10 Albumin/Globulin Ratio 0.6 Ratio (1.1-2.1) L 11/11/17 05:10 - Plan (1) TIA (transient ischemic attack) Status: Acute Qualifiers: Transient cerebral ischemia type: unspecified Qualified Code(s): G45.9 - Transient cerebral ischemic attack, unspecified Plan: PLAVIX, ECOTRIN, CRESTOR, CONTINUE TO MONITOR. 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, normal saline at 80ml/hr , brain CT in the morning, continue to monitor (3) Hypertension Status: Acute Qualifiers: Hypertension type: essential hypertension Qualified Code(s): I10 - Essential (primary) hypertension Plan: metoprolol xl 12.5mg po daily, continue to monitor (4) Hypothyroidism Status: Acute Qualifiers: Hypothyroidism type: acquired Qualified Code(s): E03.9 - Hypothyroidism, unspecified Plan: continue levothyroxine, continue to monitor (5) GERD (gastroesophageal reflux disease) Status: Acute Qualifiers: Esophagitis presence: esophagitis presence not specified Qualified Code(s) : K21.9 - Gastro-esophageal reflux disease without esophagitis Plan: continue protonix, continue to monitor (6) Hyperlipemia Status: Acute Qualifiers: Hyperlipidemia type: mixed hyperlipidemia Qualified Code(s): E78.2 - Mixed hyperlipidemia Plan: continue rosuvastatin, continue to monitor
--- NOTE | 2017-11-11 21:40 | PCM.PROG ---
Progress Note - Progress Note for Day of Date: 11/11/17 - Subjective Subjective: WAS ADMITTED FOLLOWING A SYNCOPAL EPISODE. BRAIN CT REVEALED MULTIPLE TIAs. TODAY, SHE IS ALERT AND ORIENTED, LYING IN BED ON MORNING ROUNDS. SHE CONTINUES WITH COMPLAINTS OF GENERALIZED WEAKNESS, BUT DENIES HEADACHE OR NAUSEA THIS MORNING. ON EXAMINATION, PUPILS PERRLA. HEART IS REGULAR IN RATE AND RHYTHM. BIALTERAL LUNGS ARE CLEAR TO AUSCULTATION. ABDOMEN IS ROUND, SOFT, AND NON-TENDER WITH NORMAL BOWEL SOUNDS NOTED IN ALL QUADRANTS. THERE IS NORMAL RANGE OF MOTION NOTED TO ALL EXTREMITIES. HER VITALS THIS MORNING ARE 98.1-67-20-97%-143/66. LABS WERE OBTAINED THIS MORNING. ABNORMAL LAB VALUES INCLUDE THE FOLLOWING: WBC 10.4, HGB 9.8, HCT 28.8, BUN 6, GLUCOSE 110, ALBUMIN 2.5. BLOOD PRESSURE IS SLIGHTLY INCREASED TODAY COMPARED TO YESTERDAY. TODAY, WE WILL START AMLODIPINE 5MG PO DAILY. SHE CONTINUES ON ASPIRIN, PLAVIX, AND ROSUVASTATIN. WE WILL CONTINUE WITH CURRENT PLAN OF CARE TODAY. WE PLAN TO FOLLOW UP WITH AM LABS AND CONTINUE TO MONITOR PATIENT. - Past Medical Family Social History Past Med/Fam/Surg Hx: No changes since H&P Allergies: Allergies iodine Allergy (Verified 11/08/17 14:07) - Review of Systems ROS: No change since H&P - Vital Signs and I&O's Vital Signs: Temperature 99.2 F Pulse Rate [Left Brachial] 68 Pulse Rate 67 Respiratory Rate 21 Blood Pressure [Left Arm] 138/63 Blood Pressure 173/76 O2 Sat by Pulse Oximetry 98 Intake and Output: Intake & Output 11/09/17 11/10/17 11/11/17 11/12/17 11:59 11:59 11:59 11:59 Intake Total 1640 2507 2872 1440 Output Total 0 Balance 1640 2507 2872 1440 - Physical Exam Oriented: Normal Eyes: Normal Ear: Normal Nose: Normal Throat: Normal Respiratory: Normal Cardiovascular: Normal. negative: S3, S4, Murmur : Normal. negative: Dysuria, Hematuria, Frequency, Discharge, Testicular Pain , Bleeding, , Other Auscultation: Bowel Sounds: Normal. negative: Bruit, Absent, Increased, Decreased, High Pitched, Other Palpation: Normal Tenderness: Normal. negative: Rebound, Guarding, Rigidity Skin: Normal Musculoskeletal: Normal Psychiatric: Normal. negative: Anxiety, Depression, Agitation, Other Mood Description: Calm. negative: Angry, Apathetic, Depressed, Fearful, Flat, Happy, Hostile, Sad, Suspicious, Withdrawn, Anxious, Appropriate, Labile Affect: Normal. negative: Angry, Anxious, Depressed, Flat, Hysterical, Quiet, Violent Speech Pattern: Clear, Appropriate - Laboratory and Diagnostics Result Diagrams: 11/11/17 05:10 11/11/17 05:10 Labs: Laboratory WBC 10.4 X10^3/uL (3.6-10.0) H 11/11/17 05:10 RBC 3.60 X10^6/uL (3.5-5.4) 11/11/17 05:10 Hgb 9.8 g/dL (12.0-16.0) L 11/11/17 05:10 Hct 28.8 % (36.0-47.0) L 11/11/17 05:10 MCV 80.1 fL (80.0-100.0) 11/11/17 05:10 MCH 27.3 pg (27.0-34.0) 11/11/17 05:10 MCHC 34.1 g/dL (33.0-35.0) 11/11/17 05:10 RDW 14.5 % (11.6-16.5) 11/11/17 05:10 Plt Count 312 X10^3/uL (150.0-450.0) 11/11/17 05:10 MPV 7.2 fL (7.4-11.0) L 11/11/17 05:10 Neut % 66.2 % (42.0-75.0) 11/11/17 05:10 Lymph % 18.5 % (21.0-51.0) L 11/11/17 05:10 [place] % 11.1 % (0.0-13.0) 11/11/17 05:10 Eos % 3.3 % (0.9-2.9) H 11/11/17 05:10 Baso % 0.9 % (0.2-1.0) 11/11/17 05:10 Neut # 6.9 x10^3/uL (2.2-4.8) H 11/11/17 05:10 Lymph # 1.9 X10^3/uL (1.3-2.9) 11/11/17 05:10 [place] # 1.2 x10^3/uL (0.3-0.8) H 11/11/17 05:10 Eos # 0.3 x10^3/uL (0.0-0.2) H 11/11/17 05:10 Baso # 0.1 X10^3/uL (0.0-0.1) 11/11/17 05:10 Absolute Nucleated RBC 0.0 /100WBC 11/11/17 05:10 INR Target Range - 11/08/17 14:30 INR 1.07 (0.8-1.3) 11/08/17 14:30 PTT 30.6 SECONDS (22.9-36.5) 11/08/17 14:30 PTT Comment - 11/08/17 14:30 Sodium 141 mmol/L (136-145) 11/11/17 05:10 Corrected Sodium TNP 11/11/17 05:10 Potassium 3.6 mmol/L (3.5-5.1) 11/11/17 05:10 Chloride 106 mmol/L (98-107) 11/11/17 05:10 Carbon Dioxide 28.0 mmol/L (21-32) 11/11/17 05:10 BUN 6 mg/dL (7-18) L 11/11/17 05:10 Creatinine 0.76 mg/dL (0.55-1.02) 11/11/17 05:10 Est GFR (MDRD) Af Amer > 60 (>60) 11/11/17 05:10 Est GFR (MDRD) Non-Af > 60 (>60) 11/11/17 05:10 Glucose 110 mg/dL (65-99) H 11/11/17 05:10 Calcium 8.7 mg/dL (8.5-10.1) 11/11/17 05:10 Corrected Calcium 9.9 mg/dL (8.5-10.1) 11/11/17 05:10 Magnesium 1.8 mg/dL (1.7-2.9) 11/11/17 05:10 Total Bilirubin 0.30 mg/dL (0.2-1.0) 11/11/17 05:10 AST 15 Units/L (15-37) 11/11/17 05:10 ALT 14 Units/L (12-78) 11/11/17 05:10 Alkaline Phosphatase 56 Units/L (46-116) 11/11/17 05:10 Creatine Kinase 83 Units/L (26-192) 11/08/17 20:40 CK-MB (CK-2) < 1.0 ng/mL (0-4.0) 11/08/17 20:40 CK/CKMB % Calc 1.2 % (<4) 11/08/17 20:40 Troponin I < 0.02 ng/mL (0-1.5) 11/08/17 20:40 Total Protein 6.9 g/dL (6.4-8.2) 11/11/17 05:10 Albumin 2.5 g/dL (3.4-5.0) L 11/11/17 05:10 Globulin 4.4 g/dL (2.5-4.5) 11/11/17 05:10 Albumin/Globulin Ratio 0.6 Ratio (1.1-2.1) L 11/11/17 05:10 - Plan (1) TIA (transient ischemic attack) Status: Acute Qualifiers: Transient cerebral ischemia type: unspecified Qualified Code(s): G45.9 - Transient cerebral ischemic attack, unspecified Plan: PLAVIX, ECOTRIN, CRESTOR, CONTINUE TO MONITOR. 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, normal saline at 80ml/hr , brain CT in the morning, continue to monitor (3) Hypertension Status: Acute Qualifiers: Hypertension type: essential hypertension Qualified Code(s): I10 - Essential (primary) hypertension Plan: amlodipine 5mg po daily, metoprolol xl 12.5mg po daily, continue to monitor (4) Hypothyroidism Status: Acute Qualifiers: Hypothyroidism type: acquired Qualified Code(s): E03.9 - Hypothyroidism, unspecified Plan: continue levothyroxine, continue to monitor (5) GERD (gastroesophageal reflux disease) Status: Chronic Qualifiers: Esophagitis presence: esophagitis presence not specified Qualified Code(s) : K21.9 - Gastro-esophageal reflux disease without esophagitis Plan: continue protonix, continue to monitor (6) Hyperlipemia Status: Chronic Qualifiers: Hyperlipidemia type: mixed hyperlipidemia Qualified Code(s): E78.2 - Mixed hyperlipidemia Plan: continue rosuvastatin, continue to monitor
[2017-11-12 06:07] LABS: BASOPHILS # (AUTO) 0.1 X10^3/uL (0.0-0.1); BASOPHILS % (AUTO) 1.3 % (0.2-1.0); EOSINOPHILS # (AUTO) 0.4 x10^3/uL (0.0-0.2); EOSINOPHILS % (AUTO) 4.5 % (0.9-2.9); HEMOGLOBIN 9.5 g/dL (12.0-16.0); LYMPHOCYTES # (AUTO) 2.1 X10^3/uL (1.3-2.9); LYMPHOCYTES % (AUTO) 26.8 % (21.0-51.0); MEAN CORPUSCULAR HEMOGLOBIN 27.1 pg (27.0-34.0); MEAN CORPUSCULAR HGB CONC 33.9 g/dL (33.0-35.0); MEAN CORPUSCULAR VOLUME 79.9 fL (80.0-100.0); MEAN PLATELET VOLUME 7.3 fL (7.4-11.0); MONOCYTES # (AUTO) 0.9 x10^3/uL (0.3-0.8); MONOCYTES % (AUTO) 11.8 % (0.0-13.0); NEUTROPHILS # (AUTO) 4.4 x10^3/uL (2.2-4.8); NEUTROPHILS % (AUTO) 55.6 % (42.0-75.0); PLATELET COUNT 338 X10^3/uL (150.0-450.0); RED CELL DISTRIBUTION WIDTH 14.5 % (11.6-16.5)
[2017-11-12 06:26] LABS: ALANINE AMINOTRANSFERASE 16 Units/L (12-78); ALBUMIN 2.4 g/dL (3.4-5.0); ALKALINE PHOSPHATASE 53 Units/L (46-116); ASPARTATE AMINO TRANSFERASE 10 Units/L (15-37); BLOOD UREA NITROGEN 10 mg/dL (7-18); CALCIUM 8.6 mg/dL (8.5-10.1); CHLORIDE 106 mmol/L (98-107); COR CA(FOR HYPOALB) 9.9 mg/dL (8.5-10.1); CREATININE 0.83 mg/dL (0.55-1.02); SODIUM 141 mmol/L (136-145); TOTAL PROTEIN 6.5 g/dL (6.4-8.2); eGFR BLACK RACES > 60 (>60); eGFR NON BLACK RACES > 60 (>60)
[2017-11-12] MEDS: NORVASC TAB 5 MG PO SCH (08:15)
[2017-11-12] MEDS: PROTONIX TAB 40 MG PO SCH (08:15)
[2017-11-12] MEDS: CRESTOR TAB 10 MG PO SCH (08:15)
[2017-11-12] MEDS: K-LYTE EFFERVESCENT PO PRN (08:15)
[2017-11-12] MEDS: SYNTHROID 100 mcg TAB PO SCH (08:15)
[2017-11-12] MEDS: ECOTRIN TAB 325 MG PO SCH (08:16)
[2017-11-12] MEDS: TOPROL XL PO SCH (08:16)
[2017-11-12] MEDS: PLAVIX PO SCH (08:16)
[2017-11-12 10:12] VITALS: BP 148/68
== END 2017-11-12 11:00 | disposition home health service (06) | DRG 69 ==
LOC: ER 14:06 → ICU 16:16 → OBSVTOIN 11-10 08:30
PROVIDERS: ADMIT Obstetrics & Gynecology Obstetrics; ATTEND Internal Medicine
PROC: 3E0234Z Introduction of Serum, Toxoid and Vaccine into Muscle, Percutaneous Approach (ICD-10-PCS; principal; 2017-11-08)
DX: G45.8 Other transient cerebral ischemic attacks and related syndromes (principal); R51 Headache; R53.1 Weakness; E03.8 Other specified hypothyroidism; I25.10 Atherosclerotic heart disease of native coronary artery without angina pectoris; E78.2 Mixed hyperlipidemia; K21.9 Gastro-esophageal reflux disease without esophagitis; I10 Essential (primary) hypertension; R06.02 Shortness of breath; Z23 Encounter for immunization
CPT/HCPCS: 36415; 70450; 70544; 70552; 71045; 80053; 82550; 82553; 83735; 84484; 85025; 85610; 85730; 90686; 93005; 93306; 93880; 96365; 96374; 99284; A4216; G8978; G8979; G0378; J2405

== ENCOUNTER → 2018-02-11 | Outpatient (CLI) | payer OTHER ==
[2018-02-11 08:31] LABS: BASOPHILS # (AUTO) 0.1 X10^3/uL (0.0-0.1); BASOPHILS % (AUTO) 1.4 % (0.2-1.0); EOSINOPHILS # (AUTO) 0.3 x10^3/uL (0.0-0.2); HEMATOCRIT 34.8 % (36.0-47.0); HEMOGLOBIN 11.7 g/dL (12.0-16.0); LYMPHOCYTES # (AUTO) 3.6 X10^3/uL (1.3-2.9); LYMPHOCYTES % (AUTO) 45.1 % (21.0-51.0); MEAN CORPUSCULAR HEMOGLOBIN 26.2 pg (27.0-34.0); MEAN CORPUSCULAR HGB CONC 33.6 g/dL (33.0-35.0); MEAN CORPUSCULAR VOLUME 78.1 fL (80.0-100.0); MEAN PLATELET VOLUME 6.7 fL (7.4-11.0); MONOCYTES # (AUTO) 0.7 x10^3/uL (0.3-0.8); MONOCYTES % (AUTO) 8.5 % (0.0-13.0); NEUTROPHILS # (AUTO) 3.2 x10^3/uL (2.2-4.8); PLATELET COUNT 448 X10^3/uL (150.0-450.0); RED BLOOD COUNT 4.45 X10^6/uL (3.5-5.4); WHITE BLOOD COUNT 7.9 X10^3/uL (3.6-10.0)
[2018-02-11 08:43] LABS: ALBUMIN 3.3 g/dL (3.4-5.0); CALCIUM 8.4 mg/dL (8.5-10.1); CREATININE 1.13 mg/dL (0.55-1.02); TOTAL PROTEIN 7.9 g/dL (6.4-8.2)
== END ==
LOC: LAB 08:11
PROVIDERS: ATTEND Internal Medicine Medical Oncology
DX: C43.59 Malignant melanoma of other part of trunk (principal)
CPT/HCPCS: 36415; 80053; 83615; 85025